=== PATIENT | male | born 1975 | race Caucasian/White ===

== ENCOUNTER 2017-04-17 19:01 | Emergency (ER) | payer SELFPAY ==
[~2017-04-17] VITALS: Ht 167.6 cm; Wt 59.1 kg
[2017-04-17 19:10] VITALS: BP 108/69; PULSE 130; RESP 16; TEMP 100; O2SAT 95
[2017-04-17] MEDS ORDERED: SODIUM CHLOR 0.9% 1000 ML INJ 1,000 ML IV SCH (19:13)
[2017-04-17] MEDS ORDERED: SODIUM CHLORIDE 0.9% FLUSH 10 ML FLUSH IV FLUSH PRN (19:15)
--- NOTE | 2017-04-17 19:16 | PD ---
HPI Chief Complaint: overdose Time Seen by Provider: 19:13 Travel History International Travel<30 days: No Contact w/Intl Traveler<30days: No Traveled to known affect area: No History of Present Illness HPI 41-year-old male brought in by ambulance after an unintentional heroin overdose. Patient was found in a parking lot with agonal respirations and decreased mental status. EMS attempted to establish an IV, however 1 successful , so they established a right IO and administered 0.4 mg of Narcan. Shortly after the patient had significant improvement in mental status and respiratory status. Upon arrival to the emergency department the patient is awake and alert. He admits to injecting heroin and crack into his right forearm. This was an unintentional overdose. He is not suicidal. He denies any physical complaints. PFSH Past Medical History Autoimmune Disease: No Anxiety: No Depression: No Cancer: No Cardiovascular Problems: No Chemotherapy: No Endocrine: No Gastrointestinal Disorders: No GERD: Yes Genitourinary: No Hiatal Hernia: Yes Immune Disorder: No Kidney Stones: Yes Musculoskeletal: No Neurologic: No Psychiatric: No Respiratory: No Immunizations Current: Yes Pancreatitis: Yes Radiation Therapy: No Sickle Cell Disease: No Ulcer: No Past Surgical History Abdominal Surgery: No Body Medical Devices: METAL ON RIGHT FEMUR Cardiac Surgery: No Ear Surgery: No Endocrine Surgery: No Eye Surgery: No Genitourinary Surgery: No Gynecologic Surgery: No Oral Surgery: No Thoracic Surgery: No Other Surgery: Yes Social History Alcohol Use: No Tobacco Use: Yes (5 CIGS PER DAY) Substance Use: No Allergies-Medications (Allergen,Severity, Reaction): Coded Allergies: Sulfa (Verified Allergy, Severe, Rash, 04/17/17) Reported Meds & Prescriptions Reported Meds & Active Scripts Active No Active Prescriptions or Reported Medications Review of Systems Except as stated in HPI: all other systems reviewed are Neg Physical Exam Narrative GENERAL: Well-developed, well-nourished, awake, alert, GCS 15, no apparent distress. SKIN: Focused skin assessment warm/dry. Track muse on right forearm. No warmth, erythema, or signs of cellulitis. HEAD: Atraumatic. Normocephalic. EYES: Pupils equal and round. No scleral icterus. No injection or drainage. ENT: Mucous membranes pink and moist. Poor dentition. NECK: Trachea midline. No JVD. CARDIOVASCULAR: Regular rate and rhythm. No murmur. RESPIRATORY: No accessory muscle use. Clear to auscultation. Breath sounds equal bilaterally. GASTROINTESTINAL: Abdomen soft, non-tender, nondistended. MUSCULOSKELETAL: No obvious deformities. No clubbing. No cyanosis. No edema. Right mid tibia with IO in place. NEUROLOGICAL: Awake and alert. No obvious cranial nerve deficits. Motor grossly within normal limits. Normal speech. PSYCHIATRIC: Appropriate mood and affect; insight and judgment normal. Data Data Last Documented VS Vital Signs Date Time Temp Pulse Resp B/P Pulse Ox O2 Delivery O2 Flow Rate FiO2 04/17/17 19:10 100.0 130 16 108/69 95 Orders Basic Metabolic Panel (Bmp) (04/17/17 19:13) Complete Blood Count With Diff (04/17/17 19:13) Iv Access Insert/Monitor (04/17/17 19:13) Ecg Monitoring (04/17/17 19:13) Oximetry (04/17/17 19:13) Sodium Chlor 0.9% 1000 Ml Inj (Ns 1000 M (04/17/17 19:13) Sodium Chloride 0.9% Flush (Ns Flush) (04/17/17 19:15) Electrocardiogram (04/17/17 19:19) Blood Culture (04/17/17 21:14) Labs Laboratory Tests Test 04/17/17 20:26 White Blood Count 14.8 TH/MM3 Red Blood Count 4.25 MIL/MM3 Hemoglobin 13.3 GM/DL Hematocrit 40.1 % Mean Corpuscular Volume 94.3 FL Mean Corpuscular Hemoglobin 31.4 PG Mean Corpuscular Hemoglobin 33.3 % Concent Red Cell Distribution Width 12.8 % Platelet Count 211 TH/MM3 Mean Platelet Volume 8.3 FL Neutrophils (%) (Auto) 79.7 % Lymphocytes (%) (Auto) 13.1 % Monocytes (%) (Auto) 6.9 % Eosinophils (%) (Auto) 0.2 % Basophils (%) (Auto) 0.1 % Neutrophils # (Auto) 11.7 TH/MM3 Lymphocytes # (Auto) 1.9 TH/MM3 Monocytes # (Auto) 1.0 TH/MM3 Eosinophils # (Auto) 0.0 TH/MM3 Basophils # (Auto) 0.0 TH/MM3 CBC Comment DIFF FINAL Differential Comment Sodium Level 137 MEQ/L Potassium Level 3.7 MEQ/L Chloride Level 104 MEQ/L Carbon Dioxide Level 26.7 MEQ/L Anion Gap 6 MEQ/L Blood Urea Nitrogen 12 MG/DL Creatinine 1.36 MG/DL Estimat Glomerular Filtration 58 ML/MIN Rate Random Glucose 108 MG/DL Calcium Level 8.5 MG/DL [facility] Medical Decision Making Medical Screen Exam Complete: Yes Emergency Medical Condition: Yes Differential Diagnosis Unintentional heroin overdose Narrative Course Initial vital signs show heart rate 130, blood pressure 108/69, pulse ox 95% on room air, oral temp of 100F. Repeat vital signs show heart rate 87, blood pressure 111/66, oral temp of 97.8. Initial temp of 100F was likely secondary to hyperthermia secondary to cocaine/ crack use. Patient denies recent fevers or illness. There is no murmur on exam. No splinter hemorrhages or Os[place] nodes/family lesions on exam to suggest bacteremia. Blood cultures will be obtained. CBC shows WBC 14.8, hemoglobin 13.3, hematocrit 40.1, platelets 211. BMP is remarkable for creatinine 1.36, GFR 58, otherwise unremarkable. The patient was observed in the emergency department for 2 hours. On reassessment he states he is feeling a lot better. He would like to be discharged home. He is still somewhat drowsy and will be observed in the emergency department for another hour or 2. Again his initial hyperthermia secondary to cocaine use. There are no physical exam findings to suggest bacteremia. Repeat temp shows the patient is afebrile. Blood cultures were obtained. Diagnosis Primary Impression: Accidental overdose of heroin Qualified Code: T40.1X1A - Accidental overdose of heroin, initial encounter Additional Impression: Polysubstance abuse [facility] Additional Instructions: Follow-up with a primary care physician this week. Follow-up with [facility] for help with quitting substance abuse. Return to the emergency department for worsening symptoms or any other concerns. Scripts No Active Prescriptions or Reported Meds Disposition: 01 DISCHARGE HOME Condition: Stable Tae Jett MD Apr 17, 2017 19:16
[2017-04-17 20:41] LABS: AUTOMATED NEUTROPHIL # 11.7 TH/MM3 (1.8-7.7); BASOPHIL % 0.1 % (0.0-2.0); EOSINOPHIL % 0.2 % (0.0-4.0); HEMATOCRIT 40.1 % (39.0-51.0); HEMO FLAGS DIFF FINAL; LYMPH % 13.1 % (9.0-44.0); LYMPHOCYTE # 1.9 TH/MM3 (1.0-4.8); MEAN CELL VOLUME 94.3 FL (80.0-100.0); MEAN CORPUSCULAR HEMOGLOBIN 31.4 PG (27.0-34.0); MEAN CORPUSCULAR HGB CONC 33.3 % (32.0-36.0); MONO % 6.9 % (0.0-8.0); NEUT % 79.7 % (16.0-70.0); PLATELET COUNT 211 TH/MM3 (150-450); RED BLOOD COUNT 4.25 MIL/MM3 (4.50-5.90); RED CELL DISTRIBUTION WIDTH 12.8 % (11.6-17.2); WHITE BLOOD COUNT 14.8 TH/MM3 (4.0-11.0)
[2017-04-17 20:55] LABS: BICARBONATE 26.7 MEQ/L (21.0-32.0); POTASSIUM 3.7 MEQ/L (3.5-5.1)
[2017-04-17 21:19] VITALS: PULSE 87; TEMP 97.8
[2017-04-17 23:17] VITALS: BP 133/68; PULSE 80; RESP 14; O2SAT 100
[2017-04-18 03:09] VITALS: BP 108/66; PULSE 82; RESP 16; O2SAT 94
--- NOTE | 2017-04-18 15:41 | EKG ---
Date Performed: 04/17/2017 Time Performed: 19:19:26 PTAGE: 41 years EKG: SINUS TACHYCARDIA WITH FREQUENT SUPRAVENTRICULAR PREMATURE COMPLEXES NONSPECIFIC T-WAVE ABN ORMALITY ABNORMAL RHYTHM ECG NO PREVIOUS TRACING DOCTOR: Abhijit Fried Interpretating Date/Time 04/18/2017 15:38:42
== END 2017-04-18 06:52 | disposition home or self-care (01) ==
LOC: NEPC 19:01
DX: T40.1X1A Poisoning by heroin, accidental (unintentional), initial encounter (principal); F19.10 Other psychoactive substance abuse, uncomplicated; R00.0 Tachycardia, unspecified; R94.31 Abnormal electrocardiogram [ECG] [EKG]; R41.82 Altered mental status, unspecified; K21.9 Gastro-esophageal reflux disease without esophagitis; K85.90 Acute pancreatitis without necrosis or infection, unspecified; F17.210 Nicotine dependence, cigarettes, uncomplicated; Z88.2 Allergy status to sulfonamides
CPT/HCPCS: 80048; 85025; 87040; 93005; 96360; 99284; J7030

== ENCOUNTER 2017-05-24 21:59 | Emergency (ER) | payer SELFPAY ==
[~2017-05-24] VITALS: Ht 167.6 cm; Wt 59.0 kg
[2017-05-24 22:02] VITALS: BP 135/70; PULSE 88; RESP 16; TEMP 99.7; O2SAT 99
[2017-05-24] MEDS ORDERED: HYDR-3533 PO (23:21)
[2017-05-24] MEDS ORDERED: CLIN150 PO (23:21)
[2017-05-24] MEDS ORDERED: ACETAMINOPHEN/HYDROcodone 325 MG/5 MG TAB PO ONE (23:30)
[2017-05-24] MEDS ORDERED: CLINDAMYCIN PHOS 600 MG/4 ML VIAL IM ONE (23:30)
--- NOTE | 2017-05-24 23:30 | PD ---
HPI Chief Complaint: Oral / Dental Pain or Problem Time Seen by Provider: 23:27 Travel History International Travel<30 days: No Contact w/Intl Traveler<30days: No Traveled to known affect area: No History of Present Illness HPI 41-year-old white male presents to emergency department with complaints of facial pain and swelling over the last few days. He denies any fever or chills. He states the pain is moderate. Worse with palpation chewing. He does have a history of poor dentition. He denies any nausea vomiting. No abdominal pain. No ear pain. Symptoms are moderate. PFSH Past Medical History Narrative Medical Denies diabetes and hypertension Autoimmune Disease: No Anxiety: No Depression: No Cancer: No Cardiovascular Problems: No Chemotherapy: No Endocrine: No Gastrointestinal Disorders: No GERD: Yes Genitourinary: No Hiatal Hernia: Yes Immune Disorder: No Kidney Stones: Yes Musculoskeletal: No Neurologic: No Psychiatric: No Reproductive: No Respiratory: No Immunizations Current: Yes Pancreatitis: Yes Radiation Therapy: No Sickle Cell Disease: No Ulcer: No Tetanus Vaccination: Unknown Influenza Vaccination: No Past Surgical History Abdominal Surgery: No Body Medical Devices: METAL ON RIGHT FEMUR Cardiac Surgery: No Ear Surgery: No Endocrine Surgery: No Eye Surgery: No Genitourinary Surgery: No Gynecologic Surgery: No Neurologic Surgery: No Oral Surgery: No Thoracic Surgery: No Other Surgery: Yes Social History Alcohol Use: No Tobacco Use: Yes (5 CIGS PER DAY) Allergies-Medications (Allergen,Severity, Reaction): Coded Allergies: Sulfa (Sulfonamide Antibiotics) (Unverified Allergy, Severe, Rash, 05/24/17 ) Reported Meds & Prescriptions Reported Meds & Active Scripts Active Lortab (Hydrocodone-Acetaminophen) 5-325 Mg Tab 1 Tab PO Q6H PRN Cleocin (Clindamycin HCl) 150 Mg Cap 300 Mg PO Q6H Review of Systems Except as stated in HPI: all other systems reviewed are Neg Physical Exam Narrative GENERAL: Well-developed, well-nourished in no acute distress. Nontoxic appearing. HEAD: Patient has mild swelling of the left cheek with tenderness. EYES: Pupils equal round and reactive. Extraocular motions intact. No scleral icterus. No injection or drainage. ENT: TMs clear without erythema. The external auditory canals clear. Nose: clear . Posterior pharynx is pink and moist. No tonsillar edema or exudate. Uvula midline. Airway patent. Patient has diffuse periodontal disease with multiple dental caries. He has localizing pain and swelling to the left upper maxillary anterior teeth. There is pain and edema of the gingiva. NECK: Trachea midline.Supple, nontender, moves head freely. No central bony tenderness or spasm. CARDIOVASCULAR: Regular rate and rhythm without murmurs, gallops, or rubs. RESPIRATORY: Clear to auscultation. Breath sounds equal bilaterally. No wheezes , rales, or rhonchi. GASTROINTESTINAL: Abdomen soft, non-tender, nondistended. No hepato-splenomegaly , or palpable masses. No guarding. EXTREMITIES: No clubbing, cyanosis, or edema. No joint tenderness, effusion, or edema noted. BACK: Nontender without deformity or crepitance. No flank tenderness. Data Data Last Documented VS Vital Signs Date Time Temp Pulse Resp B/P (MAP) Pulse Ox O2 Delivery O2 Flow Rate FiO2 05/24/17 22:02 99.7 88 16 135/70 (91) 99 Room Air Orders Orders Clindamycin Inj (Cleocin Inj) (05/24/17 23:30) Acetamin-Hydrocod 325-5 Mg ([place] 5-325 (05/24/17 23:30) MDM Medical Decision Making Medical Screen Exam Complete: Yes Emergency Medical Condition: Yes Medical Record Reviewed: Yes Differential Diagnosis MDM: Moderate Differential diagnoses: Dental abscess, dental caries, osteitis, cellulitis Narrative Course This is dental abscess with facial cellulitis. Patient given clindamycin 600 mg IM. Diagnosis Primary Impression: dental abscess with facial cellulitis Patient Instructions: General Instructions, Narcotic given in the ED Additional Instructions: Rest. [place] gargles. [place] oil on cotton balls. 3 Advil every 6 hours. Amoxicillin and Lortab. follow-up with a dentist as soon as possible. And return to the ER if any problems. Med/Other Pt SpecificInfo: Prescription(s) given Scripts Hydrocodone-Acetaminophen (Lortab) 5-325 Mg Tab 1 TAB PO Q6H Y for PAIN, #12 TAB 0 Refills Prov: Yusra Morrow DO 05/24/17 Clindamycin (Cleocin) 150 Mg Cap 300 MG PO Q6H for Infection, #80 CAP 0 Refills Prov: Yusra Morrow DO 05/24/17 Disposition: 01 DISCHARGE HOME Condition: Stable Tucker Felix May 24, 2017 23:30
== END 2017-05-24 23:57 | disposition home or self-care (01) ==
LOC: EDTENT 21:59
DX: K04.7 Periapical abscess without sinus (principal); L03.211 Cellulitis of face; F17.210 Nicotine dependence, cigarettes, uncomplicated
CPT/HCPCS: 96372